=== PATIENT | female | born 1990 | race Caucasian/White ===

== ENCOUNTER 2023-03-20 15:35 | Inpatient (IN) | payer OTHER ==
[2023-03-20] MEDS ORDERED: DINOPROSTONE 10 MG VAGINAL SUPPOSITORY VG ONE (16:45)
[2023-03-20 17:18] VITALS: BMI 33.6
[2023-03-20] MEDS: ELECTROLYTE-148 SOLN 1,000 ML IV SCH (18:15)
[2023-03-20 18:45] LABS: BASO % 0.4 % (0-2.0); EOS % 1.7 % (0-4.5); HEMATOCRIT 33.1 % (32.4-45.2); HEMOGLOBIN 10.6 GM/dL (10.7-15.3); LYMPH % 27.7 % (8-40); MCH 26.5 pg (25.7-33.7); MCHC 31.9 g/dl (32.0-36.0); MEAN CELL VOLUME 83.2 fl (80-96); MEAN PLT VOLUME 9.8 fl (7.5-11.1); MONO % 6.6 % (3.8-10.2); NEUT % 63.6 % (42.8-82.8); PLATELET COUNT 234 10^3/uL (134-434); RBC 3.98 M/mm3 (3.60-5.2); RDW 15.4 % (11.6-15.6); WHITE BLOOD COUNT 8.5 K/mm3 (4.0-10.0)
[2023-03-20 18:52] LABS: INR 0.95 (0.83-1.09)
[2023-03-20 18:54] LABS: ACTIVATED PTT 27.1 SECONDS (25.2-36.5)
[2023-03-20 18:57] LABS: POTASSIUM 3.9 mmol/L (3.5-5.1)
[2023-03-20] MEDS ORDERED: CEFAZOLIN SODIUM 2 GM in DEXTROSE 5%-WATER 100 ML IVPB ONE (18:57)
[2023-03-20 18:58] LABS: BLOOD UREA NITROGEN 11.9 mg/dL (7-18); CALCIUM 8.8 mg/dL (8.5-10.1)
[2023-03-20 19:01] LABS: CREATININE 0.5 mg/dL (0.55-1.3)
[2023-03-20 19:47] LABS: HIV INTERPRETATION NEGATIVE (NEGATIVE)
[2023-03-20] MEDS ORDERED: CEFAZOLIN SODIUM 2 GM VIAL ONE (20:58)
[2023-03-20] MEDS ORDERED: DEXTROSE 5%-WATER 100 ML IVPB ONE (21:00)
[2023-03-20] MEDS ORDERED: FENTANYL/BUPIVACAINE/NS/PF - PCEA - 50 ML DISP.SYRIN EP ONE (23:23)
[2023-03-20] MEDS ORDERED: LIDO 2%/EPI 1:200000 PRESRVFRE (20 ML SDVIAL) ONE (23:44)
[2023-03-20] MEDS ORDERED: BUPIVACAINE HCL/PF 0.25% (2.5MG/ML) 10 ML VIAL ONE (23:44)
[2023-03-20] MEDS ORDERED: OXYTOCIN 30 UNITS in 0.9% NS 30 UNIT/500 ML INFUS.BAG IVPB SCH (23:45)
[2023-03-21] MEDS ORDERED: NALOXONE HCL 0.4 MG/ML VIAL IVPUSH PRN (00:11)
[2023-03-21] MEDS ORDERED: FENTANYL/BUPIVACAINE/NS/PF - PCEA - 50 ML DISP.SYRIN EP SCH (00:15)
[2023-03-21] MEDS ORDERED: CEFAZOLIN 1 GM in DEXTROSE 5%-WATER - 50 ML IVPB SCH (02:00)
[2023-03-21] MEDS ORDERED: FENTANYL/BUPIVACAINE/NS/PF - PCEA - 50 ML DISP.SYRIN EP ONE (02:51)
[2023-03-21] MEDS ORDERED: OXYTOCIN 30 UNITS in 0.9% NS 30 UNIT/500 ML INFUS.BAG IVPB ONE (02:55)
[2023-03-21] MEDS ORDERED: CITRIC ACID/SODIUM CITRATE 30 ML UNIT-DOSE CUP PO ONE (03:00)
[2023-03-21] MEDS ORDERED: BUPIVACAINE HCL/PF 0.25% (2.5MG/ML) 10 ML VIAL ONE (04:36)
[2023-03-21] MEDS ORDERED: ceFAZolin SODIUM 1 GM VIAL ONE (05:08)
[2023-03-21] MEDS: CEFAZOLIN 1 GM in DEXTROSE 5%-WATER - 50 ML IVPB SCH ×3 (05:14→17:18)
[2023-03-21] MEDS ORDERED: OXYTOCIN 20 UNITS in 0.9% NS 20 UNIT/1,000 ML INFUS.BAG IV ONE (05:36)
[2023-03-21] MEDS ORDERED: BISACODYL 10 MG SUPP.RECT RC PRN (06:54)
[2023-03-21] MEDS ORDERED: BENZOCAINE 28 GM HEMORRHOIDAL OINTMENT TP PRN (06:54)
[2023-03-21] MEDS ORDERED: BENZOCAINE 20% 57 GM BOTTLE TP PRN (06:54)
[2023-03-21] MEDS ORDERED: WITCH HAZEL 50% (TUCKS) 40 PAD/JAR PAD TP PRN (06:54)
[2023-03-21] MEDS ORDERED: ACETAMINOPHEN 325 MG TABLET (FP) PO PRN (06:54)
[2023-03-21] MEDS ORDERED: METHYLERGONOVINE MALEATE 0.2 MG/1 ML AMP IM PRN (06:54)
[2023-03-21] MEDS ORDERED: oxyCODONE HCL 5 MG TABLET PO PRN (06:54)
[2023-03-21] MEDS ORDERED: OXYTOCIN 20 UNITS in 0.9% NS 20 UNIT/1,000 ML INFUS.BAG IV SCH (07:00)
[2023-03-21] MEDS ORDERED: IBUPROFEN 600 MG TABLET (FP) PO ONE (07:12)
[2023-03-21] MEDS: IBUPROFEN 600 MG TABLET (FP) PO PRN ×3 (07:18→20:43)
[2023-03-21 10:45] VITALS: RESP 18
[2023-03-21] MEDS: ELECTROLYTE-148 SOLN 1,000 ML IV SCH (19:58)
[2023-03-22] MEDS: IBUPROFEN 600 MG TABLET (FP) PO PRN ×3 (02:06→19:53)
[2023-03-22 08:33] LABS: BASO % 0.2 % (0-2.0); EOS % 1.5 % (0-4.5); HEMATOCRIT 24.4 % (32.4-45.2); HEMOGLOBIN 7.9 GM/dL (10.7-15.3); LYMPH % 34.1 % (8-40); MCH 27.1 pg (25.7-33.7); MCHC 32.6 g/dl (32.0-36.0); MEAN CELL VOLUME 83.2 fl (80-96); MEAN PLT VOLUME 9.3 fl (7.5-11.1); MONO % 5.2 % (3.8-10.2); PLATELET COUNT 163 10^3/uL (134-434); RBC 2.93 M/mm3 (3.60-5.2); RDW 14.8 % (11.6-15.6); WHITE BLOOD COUNT 9.2 K/mm3 (4.0-10.0)
[2023-03-22] MEDS ORDERED: SENNOSIDES/DOCUSATE COMBO (SENNA PLUS) TABLET (UD) PO PRN (22:00)
[2023-03-23] MEDS: IBUPROFEN 600 MG TABLET (FP) PO PRN (03:57)
[2023-03-23 09:35] VITALS: BP 108/74; PULSE 65; TEMP 98.6
== END 2023-03-23 13:15 | disposition home or self-care (01) | DRG 560 ==
LOC: JLDR 15:35 → J3W 03-21 08:30
PROVIDERS: ADMIT Specialist; ATTEND Specialist
PROC: 3E0P7VZ Introduction of Hormone into Female Reproductive, Via Natural or Artificial Opening (ICD-10-PCS; 2023-03-20)
PROC: 10E0XZZ Delivery of Products of Conception, External Approach (ICD-10-PCS; principal; 2023-03-21)
PROC: 0W8NXZZ Division of Female Perineum, External Approach (ICD-10-PCS; 2023-03-21)
DX: O99.824 Streptococcus B carrier state complicating childbirth (principal); Z3A.39 39 weeks gestation of pregnancy; Z37.0 Single live birth
CPT/HCPCS: 36415; 80048; 85025; 85610; 85730; 86780; 86850; 86900; 86901; 87389

== ENCOUNTER 2024-05-03 05:15 | Inpatient (IN) | payer OTHER ==
[2024-05-03] MEDS: ELECTROLYTE-148 SOLN 1,000 ML IV SCH (06:05)
[2024-05-03] MEDS ORDERED: PROMETHAZINE HCL 25 MG/1 ML VIAL ONE (06:17)
[2024-05-03] MEDS ORDERED: BUTORPHANOL TARTRATE 1 MG/ML VIAL ONE (06:17)
[2024-05-03 06:20] LABS: BASO % 0.2 % (0-2.0); EOS % 0.7 % (0-4.5); HEMATOCRIT 28.4 % (32.4-45.2); HEMOGLOBIN 9.1 GM/dL (10.7-15.3); LYMPH % 34.2 % (8-40); MEAN PLT VOLUME 8.6 fl (7.5-11.1); NEUT % 57.9 % (42.8-82.8); PLATELET COUNT 223 10^3/uL (134-434); RBC 3.94 M/mm3 (3.60-5.2); RDW 17.9 % (11.6-15.6); WHITE BLOOD COUNT 10.8 K/mm3 (4.0-10.0)
[2024-05-03] MEDS: PROMETHAZINE HCL 25 MG/1 ML VIAL IVPB ONE (06:22)
[2024-05-03] MEDS: BUTORPHANOL TARTRATE 1 MG/ML VIAL IVPB ONE (06:22)
[2024-05-03 06:26] LABS: INR 0.85 (0.83-1.09); PROTHROMBIN TIME (PATIENT) 9.6 SEC (9.7-13.0)
[2024-05-03 06:28] LABS: ACTIVATED PTT 26.5 SECONDS (25.2-36.5)
[2024-05-03 06:33] VITALS: BMI 33.7
[2024-05-03] MEDS ORDERED: OXYTOCIN 30 UNITS in 0.9% NS 30 UNIT/500 ML INFUS.BAG IVPB ONE (07:53)
[2024-05-03] MEDS ORDERED: OXYTOCIN 20 UNITS in 0.9% NS 20 UNIT/1,000 ML INFUS.BAG IV ONE (08:06)
[2024-05-03] MEDS: OXYTOCIN 20 UNITS in 0.9% NS 20 UNIT/1,000 ML INFUS.BAG IV SCH (08:15)
[2024-05-03] MEDS ORDERED: oxyCODONE HCL 5 MG TABLET PO PRN (08:16)
[2024-05-03] MEDS ORDERED: BISACODYL 10 MG SUPP.RECT RC PRN (08:16)
[2024-05-03] MEDS ORDERED: METHYLERGONOVINE MALEATE 0.2 MG/1 ML AMP IM PRN (08:16)
[2024-05-03] MEDS ORDERED: BENZOCAINE 28 GM HEMORRHOIDAL OINTMENT TP PRN (08:16)
[2024-05-03] MEDS ORDERED: WITCH HAZEL 50% (TUCKS) 40 PAD/JAR PAD TP PRN (08:16)
[2024-05-03] MEDS ORDERED: ACETAMINOPHEN 325 MG TABLET (FP) PO PRN (08:16)
[2024-05-03] MEDS ORDERED: IBUPROFEN 600 MG TABLET (FP) PO ONE (08:27)
[2024-05-03] MEDS: IBUPROFEN 600 MG TABLET (FP) PO PRN (09:09)
[2024-05-03 11:06] VITALS: RESP 18
[2024-05-03 11:59] LABS: HIV INTERPRETATION NEGATIVE (NEGATIVE)
[2024-05-03] MEDS: BENZOCAINE 20% 57 GM BOTTLE TP PRN (21:30)
[2024-05-04 07:18] LABS: BASO % 0.2 % (0-2.0); EOS % 1.1 % (0-4.5); HEMATOCRIT 23.6 % (32.4-45.2); HEMOGLOBIN 7.5 GM/dL (10.7-15.3); MCH 23.1 pg (25.7-33.7); MCHC 31.6 g/dl (32.0-36.0); MEAN PLT VOLUME 8.4 fl (7.5-11.1); MONO % 5.3 % (3.8-10.2); NEUT % 59.4 % (42.8-82.8); PLATELET COUNT 177 10^3/uL (134-434); RBC 3.23 M/mm3 (3.60-5.2); RDW 17.8 % (11.6-15.6); WHITE BLOOD COUNT 11.5 K/mm3 (4.0-10.0)
[2024-05-04] MEDS: SENNOSIDES/DOCUSATE COMBO (SENNA PLUS) TABLET (UD) PO PRN (20:56)
[2024-05-05] MEDS: FERROUS SO4 325 MG TABLET (FP) PO SCH (09:29)
[2024-05-05 10:10] VITALS: BP 111/72; PULSE 80; TEMP 98.2
== END 2024-05-05 12:45 | disposition home or self-care (01) | DRG 560 ==
LOC: JDEL 05:15 → JLDR 05:55 → J3W 10:30
PROVIDERS: ADMIT Specialist; ATTEND Specialist
PROC: 10E0XZZ Delivery of Products of Conception, External Approach (ICD-10-PCS; principal; 2024-05-03)
PROC: 0HQ9XZZ Repair Perineum Skin, External Approach (ICD-10-PCS; 2024-05-03)
PROC: 0W8NXZZ Division of Female Perineum, External Approach (ICD-10-PCS; 2024-05-03)
DX: O70.0 First degree perineal laceration during delivery (principal); Z3A.39 39 weeks gestation of pregnancy; Z37.0 Single live birth
CPT/HCPCS: 36415; 59409; 85025; 85610; 85730; 86780; 86850; 86900; 86901; 87389